=== PATIENT | male | born 1960 | race Caucasian/White ===

== ENCOUNTER 2017-02-17 12:25 | Emergency (ER) | payer OTHER ==
[2017-02-17 12:41] VITALS: BP 129/84
[2017-02-17] MEDS ORDERED: Ondansetron 4 MG/2 ML SDV IVPUSH ONE (13:26)
[2017-02-17] MEDS ORDERED: HYDROmorphone 1 MG/ML Syringe IVPUSH ONE (13:26)
[2017-02-17] MEDS ORDERED: Sodium Chloride 0.9% 1,000 ML IV SCH (13:30)
--- NOTE | 2017-02-17 13:55 | PCM.PREANE ---
Preanesthetic Assessment - Anesthesia/Transfusion/Family Hx Anesthesia History: Prior Anesthesia Without Reaction Family History of Anesthesia Reaction: No Type of Transfusion Reactions: Reports: Unknown - Review of Systems General: No Symptoms Pulmonary: No Symptoms Cardiovascular: No Symptoms, Other (Aortic Valve in ) Gastrointestinal: No Symptoms Neurological: No Symptoms Other: Reports: Easy Bleeding, Easy Bruising (Anticoagulated on coumadin for heart valve) - Physical Assessment NPO Status Date: 02/17/17 NPO Status Time: 07:15 O2 Sat by Pulse Oximetry: 96 Respiratory Rate: 16 Vital Signs: Last Vital Signs Temp 36.3 C 02/17/17 12:39 Pulse 58 L 02/17/17 12:39 Resp 16 02/17/17 12:39 BP 129/84 02/17/17 12:39 Pulse Ox 96 02/17/17 12:39 Height: 1.85 m Weight: 90.718 kg ASA Class: 2 Mental Status: Alert & Oriented x3 Dentition: Reports: Normal Dentition Thyro-Mental Finger Breadths: 3 Mouth Opening Finger Breadths: 2 ROM/Head Extension: Full Lungs: Clear to Auscultation, Normal Respiratory Effort Cardiovascular: Regular Rate, Regular Rhythm, Murmurs (AVR) - Allergies Allergies/Adverse Reactions: Allergies Allergy/AdvReac Type Severity Reaction Status Date / Time Penicillins Allergy Rash Verified 02/17/17 12:41 - Acknowledgements Anesthesia Type Planned: MAC Pt an Appropriate Candidate for the Planned Anesthesia: Yes Alternatives and Risks of Anesthesia Discussed w Pt/Guardian: Yes Pt/Guardian Understands and Agrees with Anesthesia Plan: Yes PreAnesthesia Questionnaire Cardiovascular History: Reports: High Cholesterol, Hypertension Other Cardiovascular History: Stenosis - Past Surgical History Cardiovascular Surgical History: Reports: Valve Replacement Musculoskeletal Surgical History: Reports: Shoulder Surgery - SUBSTANCE USE Smoking Status *Q: Never Smoker Second Hand Smoke Exposure: No Recreational Drug Use History: No - HOME MEDS Home Medications: Home Meds Aspirin [[place] Aspirin] 81 mg PO DAILY 05/18/15 [History] Cholecalciferol (Vitamin D3) [Vitamin D3] 1,000 units PO DAILY 05/18/15 [History ] Metoprolol Succinate [Toprol XL] 25 mg PO DAILY 05/18/15 [History] Warfarin Dosing [Coumadin Ask] 3 mg PO DAILY 05/18/15 [History] Pravastatin Sodium [Pravastatin (Pravachol)] 40 mg PO DAILY 02/17/17 [History] - CURRENT (IN HOUSE) MEDS Current Meds: Current Medications Sodium Chloride (Normal Saline) 1,000 mls @ 100 mls/hr IV ASDIRECTED [facility] Last Admin: 02/17/17 13:41 Dose: 100 mls/hr Discontinued Medications Hydromorphone HCl (Dilaudid) 1 mg IVPUSH ONETIME ONE Stop: 02/17/17 13:27 Last Admin: 02/17/17 13:43 Dose: 1 mg Ondansetron HCl (Zofran) 4 mg IVPUSH ONETIME ONE Stop: 02/17/17 13:27 Last Admin: 02/17/17 13:42 Dose: 4 mg
--- NOTE | 2017-02-17 13:59 | EDM.PDOC ---
ED HPI GENERAL MEDICAL PROBLEM - General Chief Complaint: Upper Extremity Injury/Pain Stated Complaint: SHOULDER PAIN Time Seen by Provider: 02/17/17 13:12 Source of Information: Reports: Patient, Family (), RN Notes Reviewed History Limitations: Reports: No Limitations - History of Present Illness INITIAL COMMENTS - FREE TEXT/NARRATIVE: The patient states that he has a history of recurrent bilateral shoulder dislocations. He had surgery on his right shoulder, but not his left. He states that around 11:45 this morning, he lifted a branch assistant and dislocated his left shoulder. He reports 3 prior for dislocations, although several other times where the shoulder began to dislocate and did not fully before he caught it. The patient's last oral solid food was at 07:15, and his last oral fluids was at 11:00 this morning. The patient's PCP is Dr. Zach Montelongo. The patient does not currently have an Orthopedic Surgeon. Left Shoulder Pain Score (Numeric/FACES): 9 - Related Data Allergies Allergy/AdvReac Type Severity Reaction Status Date / Time Penicillins Allergy Rash Verified 02/17/17 12:41 Home Meds: Home Meds Aspirin [[place] Aspirin] 81 mg PO DAILY 05/18/15 [History] Cholecalciferol (Vitamin D3) [Vitamin D3] 1,000 units PO DAILY 05/18/15 [History ] Metoprolol Succinate [Toprol XL] 25 mg PO DAILY 05/18/15 [History] Warfarin Dosing [Coumadin Ask] 3 mg PO DAILY 05/18/15 [History] Pravastatin Sodium [Pravastatin (Pravachol)] 40 mg PO DAILY 02/17/17 [History] Past Medical History Cardiovascular History: Reports: Other (See Below) (Bicuspid aortic valve) - Past Surgical History HEENT Surgical History: Reports: Oral Surgery ([place] teeth extraction) Cardiovascular Surgical History: Reports: Valve Replacement (Mechanical aortic 2015) Musculoskeletal Surgical History: Reports: Shoulder Surgery (Right, open) Social & Family History - Tobacco Use Smoking Status *Q: Never Smoker Second Hand Smoke Exposure: No - Alcohol Use Alcohol Use History: Yes Alcohol Use Frequency: Socially - Recreational Drug Use Recreational Drug Use: No - Living Situation & Occupation Living situation: Reports: , with Spouse, with Family (2 kids) 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) Review of Systems - Review of Systems Review Of Systems: See Below Constitutional: Reports: No Symptoms Eyes: Reports: No Symptoms Ears: Reports: No Symptoms Nose: Reports: No Symptoms Mouth/Throat: Reports: No Symptoms Respiratory: Reports: No Symptoms Cardiovascular: Reports: No Symptoms GI/Abdominal: Reports: No Symptoms Genitourinary: Reports: No Symptoms Musculoskeletal: Reports: No Symptoms Skin: Reports: No Symptoms Neurological: Reports: No Symptoms Psychiatric: Reports: No Symptoms ED EXAM, GENERAL - Physical Exam Exam: See Below Exam Limited By: No Limitations General Appearance: Alert, WD/WN, Mild Distress (Appears uncomfortable) Extremities: Other (Anterior fullness and posterior void, consistent with anterior dislocation of the left shoulder. No other visible abnormalities, such as swelling, erythema, ecchymosis, or abrasion. Neurovascular status of the left upper extremity is intact.) ED TRAUMA EXTREMITY PROCEDURES - Joint Reduction Site: Shoulder (L) Sedation: Conscious Cedation Pre-Procedure NV Status: Normal Post-Procedure NV Status: Normal Technique: Traction/Counter Traction Number of Attempts: 1 Post-Reduction Imaging: Completely Reduced, No Fracture Seen Joint Reduction Complications: No Course - Vital Signs Last Recorded V/S: Last Vital Signs Temp 36.3 C 02/17/17 12:39 Pulse 58 L 02/17/17 12:39 Resp 16 02/17/17 13:55 BP 129/84 02/17/17 12:39 Pulse Ox 96 02/17/17 13:55 - Orders/Labs/Meds Orders: Active Orders 24 hr Category Date Time Status Shoulder 1V Lt [CR] Stat Exams 02/17/17 14:24 Taken Shoulder Comp Lt [CR] Stat Exams 02/17/17 13:25 Taken Sodium Chloride 0.9% [Normal Saline] 1,000 ml Med 02/17/17 13:30 Active IV ASDIRECTED Medication Orders Sodium Chloride (Normal Saline) 1,000 mls @ 100 mls/hr IV ASDIRECTED [facility] Last Admin: 02/17/17 13:41 Dose: 100 mls/hr Meds: Medications Generic Name Dose Route Start Last Admin Trade Name Freq PRN Reason Stop Dose Admin Sodium Chloride 1,000 mls @ 100 mls/hr 02/17/17 13:30 02/17/17 13:41 Normal Saline IV 100 mls/hr ASDIRECTED [facility] Administration Discontinued Medications Generic Name Dose Route Start Last Admin Trade Name Freq PRN Reason Stop Dose Admin Hydromorphone HCl 1 mg 02/17/17 13:26 02/17/17 13:43 Dilaudid IVPUSH 02/17/17 13:27 1 mg ONETIME ONE Administration Lidocaine HCl Confirm 02/17/17 14:14 Xylocaine-Mpf 1% Administered 02/17/17 14:15 Dose 4 mls @ as directed .ROUTE .STK-MED ONE Ondansetron HCl 4 mg 02/17/17 13:26 02/17/17 13:42 Zofran IVPUSH 02/17/17 13:27 4 mg ONETIME ONE Administration Propofol Confirm 02/17/17 14:14 Diprivan 20 Ml Administered 02/17/17 14:15 Dose 400 mg .ROUTE .STK-MED ONE - Re-Assessments/Exams Free Text/Narrative Re-Assessment/Exam: 02/17/17 14:15 2 view radiographs of the left shoulder appear to demonstrate complete anterior dislocation of the shoulder. No Hill-Sachs deformity seen. Formal read per the Radiologist pending. 02/17/17 15:13 Single post-reduction radiograph of the left shoulder appears to demonstrate successful reduction of the shoulder. No Hill-Sachs deformity seen. Formal read per the Radiologist pending. 02/17/17 15:14 The patient's left arm was placed into a sling. I will have him follow-up with Dr. Perez. Departure - Departure Time of Disposition: 15:14 Disposition: Home, Self-Care 01 Condition: Good Clinical Impression: Recurrent dislocation, left shoulder - Discharge Information Referrals: Zach Montelongo Jr, MD [Primary Care Provider] - Brenton Perez MD [Physician] - Forms: ED Department Discharge Additional Instructions: You were seen in the emergency room for a dislocated left shoulder. After sedation, your shoulder was reduced (put back in place). A post- reduction x-ray appears to be normal. We recommend you wear the arm sling for the next 24 hours, after which, you can gradually increase the use of your left shoulder. Take [id number] ibuprofen as needed for discomfort. We recommend you follow-up with the Orthopedic Surgeon Dr. Perez to discuss reparative surgery. If any other problems, please do not hesitate to return to the ER. - My Orders Last 24 Hours: My Active Orders 02/17/17 13:25 Shoulder Comp Lt [CR] Stat 02/17/17 13:30 Sodium Chloride 0.9% [Normal Saline] 1,000 ml IV ASDIRECTED 02/17/17 14:24 Shoulder 1V Lt [CR] Stat - Assessment/Plan Last 24 Hours: My Active Orders 02/17/17 13:25 Shoulder Comp Lt [CR] Stat 02/17/17 13:30 Sodium Chloride 0.9% [Normal Saline] 1,000 ml IV ASDIRECTED 02/17/17 14:24 Shoulder 1V Lt [CR] Stat
[2017-02-17] MEDS ORDERED: Propofol 200 MG/20 ML SDV ONE (14:14)
[2017-02-17] MEDS ORDERED: Lidocaine 1% 4 ML ONE (14:14)
--- NOTE | 2017-02-20 17:57 | CR ---
Left shoulder: Two views of the left shoulder were obtained. Comparison: No previous shoulder exam. Anterior subcoracoid dislocation is seen. Acromioclavicular joint appears within normal limits. No acute fracture or other bony abnormality is seen. Sternotomy wires are partially seen as well as prosthetic heart valve. Impression: 1. Anterior subcoracoid dislocation. 2. Other incidental findings. Diagnostic code #3
--- NOTE | 2017-02-20 17:57 | CR ---
Left shoulder: Single AP view of the left shoulder was obtained. Comparison: Previous left shoulder study performed on the same day (1:55 PM). Previous dislocation has been reduced. AP left shoulder study appears unremarkable. Impression: 1. Normal findings as noted above. Diagnostic code #1
== END 2017-02-17 15:24 | disposition home or self-care (01) ==
LOC: JD.ED 12:25
DX: S43.005A Unspecified dislocation of left shoulder joint, initial encounter (principal); Z88.0 Allergy status to penicillin; Z79.82 Long term (current) use of aspirin; Z79.01 Long term (current) use of anticoagulants; Z79.899 Other long term (current) drug therapy; Z95.2 Presence of prosthetic heart valve; Z98.890 Other specified postprocedural states; X50.0XXA Overexertion from strenuous movement or load, initial encounter
CPT/HCPCS: 23650; 23655; 73020; 73030; 96361; 96374; 96375; 99284; J1170; J2405; J7040; 01620; 99283-25; J2704